=== PATIENT | male | born 1995 | race Caucasian/White ===

== ENCOUNTER 2018-10-01 19:24 | Emergency (ER) | payer OTHER ==
[2018-10-01] MEDS ORDERED: HYDROCODONE/APAP 5/325 TAB PO ONE (20:51)
[2018-10-01] MEDS ORDERED: IBUPROFEN 600 MG TAB PO ONE (20:51)
--- NOTE | 2018-10-01 20:56 | EDPHY ---
H & P Time Seen by Provider: 10/01/18 19:58 HPI/ROS: HPI Right shoulder injury. 23-year-old male by private vehicle with his friend. This patient was skiing at [employer]. He fell and landed flush on his right shoulder. He presents complaining of isolated right shoulder pain. He did not hit his head. No other complaints. ROS: Constitutional: No fever, no chills. No weakness. Eyes: No discharge. No changes in vision. Respiratory: No cough. No shortness of breath. Cardiac: No chest pain, no palpitations. Gastrointestinal: No abdominal pain, no vomiting, no diarrhea. Genitourinary: No hematuria. Musculoskeletal: No back pain. No neck pain. As above. No other extremity pain. Skin: No lacerations or abrasions. Neurological: No headache. No focal weakness or altered sensation. Past medical history: No significant past medical history. Social history: Drinks alcohol socially. [employer]. Here with his friend. Nonsmoker. Physical Exam: General Appearance: Alert, no distress. This patient is responding to questions appropriately and in full sentences. This patient appears well- hydrated and well-nourished. Head: Normocephalic atraumatic. Face: Facial bones are stable on palpation. Eyes: Pupils equal and round and reactive to light, no pallor or injection. No lid erythema or edema. ENT, Mouth: Mucous membranes moist. Dentition is intact. No malocclusion of the jaw. No tongue lacerations or abrasions. Pharynx is clear. The bilateral nasal canals are clear. No septal hematoma. Respiratory: There are no retractions, lungs are clear to auscultation with good air movement bilaterally. Chest wall is stable to AP and lateral palpation. Cardiovascular: Regular rate and rhythm. No murmur. Neurological: Motor sensory function is intact. Cranial nerves are normal. Cerebellar function intact. Skin: Warm and dry, no rashes. No lacerations, abrasions or contusions. Musculoskeletal: Neck is supple and nontender. The trachea is midline. No midline cervical, thoracic, lumbar or sacral tenderness on palpation. No flank tenderness on palpation. Right shoulder exam: Significant for an AC joint deformity. There is no significant tenting of the skin. The axillary nerve distribution is intact. The right upper extremity is neurovascularly intact. The glenohumeral joint appears intact. No tenderness on palpation over the humerus. Extremities are symmetrical, full range of motion except noted. All joints in the bilateral upper and bilateral lower extremities range without pain or impingement except noted. No tenderness on palpation of the long bones in the bilateral upper and bilateral lower extremities except noted. Psychiatric: No agitation. No depression. Database: EKG: Imaging: Right shoulder x-ray series: Significant for a grade 3 AC joint sprain. Glenohumeral joint is intact. No evidence of clavicle fracture. Interpreted by me. Procedures: Emergency department course: Triage vital signs reviewed and are unremarkable. Patient sent for x-rays as noted. The patient will be given 600 mg of ibuprofen for pain and 2 [place] tablets for pain. He is not driving. 8:50 p.m., patient re-evaluated, he is currently being placed in a sling. The right upper extremity is neurovascularly intact. I discussed the results of his x-ray with him and his diagnosis of an AC joint sprain. Plan will be to have him follow up with Orthopedics in 2-3 days for further management. He feels comfortable going home with his friend who will be driving. I will prescribe him a short course of [place]. Ibuprofen dosing discussed with him. Return to emergency department precautions thoroughly reviewed. All of his questions were answered. He was discharged from the emergency department in good condition with his friend. Differential Diagnosis: The differential diagnosis on this patient includes but is not limited to right AC joint sprain. Glenohumeral joint dislocation, proximal humerus fracture unlikely. This represents a partial list of diagnoses considered. These considerations are based on history, physical exam, past history, reassessment and diagnostic testing. Smoking Status: Light smoker Constitutional: Initial Vital Signs Temperature (C) 37.1 C 10/01/18 19:28 Heart Rate 76 10/01/18 19:28 Respiratory Rate 16 10/01/18 19:28 Blood Pressure 144/74 H 10/01/18 19:28 O2 Sat (%) 96 10/01/18 19:28 O2 Delivery Mode Room Air Allergies/Adverse Reactions: No Known Allergies Allergy (Unverified 10/01/18 19:28) Home Medications: Medication Instructions Recorded NK [No Known Home Meds] 10/01/18 Medical Decision Making - Diagnostics Imaging Results: Imaging Impressions Shoulder X-Ray 10/01/18 19:32 Impression: Grade 3 right acromioclavicular joint sprain. Departure - Departure Disposition: Home, Routine, Self-Care Clinical Impression: Derangement of right acromioclavicular joint Condition: Good Instructions: Acromioclavicular Separation (ED) Additional Instructions: Read and follow provided instructions. Follow-up with Orthopedics, Dr. Parag Suarez, or 1 of his partners in 2-3 days for re-evaluation as discussed. Ibuprofen dosin mg every 6 hours with meals for the next 3 days only. Take only as needed for pain. Narcotic pain medication: 1-2 every 4-6 hours as needed for pain. Take only as needed for pain. Do not drive while on this medication. Return to the emergency department for worsening pain, swelling, discoloration, loss of sensation or weakness in your right arm or other serious concerns. Referrals: Parag Suarez MD [Medical Doctor] - As per Instructions
[2018-10-01] MEDS ORDERED: HYDROCOD/APAP 5/325 PREPACK#6 BTL TAKEHOME ONE (20:57)
[2018-10-01 21:14] VITALS: BP 143/84
== END 2018-10-01 21:12 | disposition home or self-care (01) ==
DX: S43.51XA Sprain of right acromioclavicular joint, initial encounter (principal); V00.321A Fall from snow-skis, initial encounter; Y93.23 Activity, snow (alpine) (downhill) skiing, snowboarding, sledding, tobogganing and snow tubing; Y92.828 Other wilderness area as the place of occurrence of the external cause